=== PATIENT | male | born 1965 | race Caucasian/White ===

== ENCOUNTER 2017-02-03 09:56 | Day surgery (SDC) | payer BC ==
[~2017-02-03 09:56] MED LIST: Acetaminophen/HYDROcodone 325-5 MG Tab PO PRN; Lactated Ringers 1,000 ML IV SCH; Lidocaine 1% 20 ML MDV ONE; ceFAZolin 2 GM in Premix Bag 1 BAG IV SCH
[2017-02-03] MEDS ORDERED: Midazolam 1 MG/ML 2 ML SDV ONE (11:02)
[2017-02-03] MEDS ORDERED: Propofol 200 MG/20 ML SDV ONE (11:02)
[2017-02-03] MEDS ORDERED: fentaNYL 100 MCG/2 ML SDV ONE ×2 (11:02→11:51)
[2017-02-03] MEDS ORDERED: Ondansetron 4 MG/2 ML SDV ONE (11:03)
[2017-02-03] MEDS ORDERED: Dexamethasone 4 MG/ML 5 ML MDV ONE (11:03)
--- NOTE | 2017-02-03 11:05 | PCM.PREANE ---
Preanesthetic Assessment - Procedure Proposed Procedure: Right knee arthroscopy - Anesthesia/Transfusion/Family Hx Anesthesia History: Prior Anesthesia Without Reaction Family History of Anesthesia Reaction: No Transfusion History: No Prior Transfusion(s) Intubation History: Unknown - Review of Systems General: No Symptoms Pulmonary: Other (smoker) Cardiovascular: No Symptoms Gastrointestinal: No Symptoms, Other (GERD) Neurological: No Symptoms Other: Reports: Depression - Physical Assessment NPO Status Date: 02/02/17 NPO Status Time: 22:00 O2 Sat by Pulse Oximetry: 94 Respiratory Rate: 18 Vital Signs: Last Vital Signs Temp 99.1 F 02/03/17 10:30 Pulse 60 02/03/17 10:30 Resp 18 02/03/17 10:30 BP 104/68 02/03/17 10:30 Pulse Ox 94 L 02/03/17 10:30 Height: 5 ft 8 in Weight: 170 lb ASA Class: 2 Mental Status: Alert & Oriented x3 Airway Class: Mallampati = 1 Dentition: Reports: Normal Dentition, Bridge (permanent upper frontal teeth) Thyro-Mental Finger Breadths: 3 Mouth Opening Finger Breadths: 3 ROM/Head Extension: Full Lungs: Clear to Auscultation, Normal Respiratory Effort Cardiovascular: Regular Rate, Regular Rhythm, No Murmurs - Allergies Allergies/Adverse Reactions: Allergies Allergy/AdvReac Type Severity Reaction Status Date / Time No Known Allergies Allergy Verified 02/01/17 09:05 - Blood Blood Available: No Product(s) Available: None - Anesthesia Plan Pre-Op Medication Ordered: None - Acknowledgements Anesthesia Type Planned: General Anesthesia (LMA) Pt an Appropriate Candidate for the Planned Anesthesia: Yes Alternatives and Risks of Anesthesia Discussed w Pt/Guardian: Yes Pt/Guardian Understands and Agrees with Anesthesia Plan: Yes PreAnesthesia Questionnaire Gastrointestinal History: Reports: GERD Musculoskeletal History: Reports: Fracture Other Musculoskeletal History: hx fx ribs, fingers and back Psychiatric History: Reports: Other (See Below) Other Psychiatric History: on anti depressents in the past - Past Surgical History Head Surgeries/Procedures: Reports: None Musculoskeletal Surgical History: Reports: Hip Replacement, Other (See Below) Other Musculoskeletal Surgeries/Procedures:: total left hip replacement - SUBSTANCE USE Smoking Status *Q: Light Tobacco Smoker Tobacco Use Within Last Twelve Months: Cigarettes Recreational Drug Use History: No - HOME MEDS Home Medications: Home Meds . [No Known Home Meds] 02/01/17 [History] - CURRENT (IN HOUSE) MEDS Current Meds: Current Medications Hydrocodone Bitart/Acetaminophen ([place] 325-5 Mg) 1 - 2 tab PO Q4H PRN PRN Reason: Pain Cefazolin Sodium/Dextrose 2 gm (/ Premix) 50 mls @ 100 mls/hr IV ONCALL SHARON Lactated Ringer's (Ringers, Lactated) 1,000 mls @ 100 mls/hr IV ASDIRECTED SHARON Discontinued Medications Lidocaine HCl (Xylocaine 1%) Confirm Administered Dose 20 ml .ROUTE .STK-MED ONE Stop: 02/03/17 07:55
[2017-02-03] MEDS ORDERED: Ketorolac 30 MG/ML SDV ONE (11:50)
--- NOTE | 2017-02-03 12:06 | PCM.OPNOTE ---
- General Post-Op/Procedure Note Date of Surgery/Procedure: 02/03/17 Operative Procedure(s): R knee arthroscopy with PLM/PMM Post-Op Diagnosis: R knee med/lat meniscus tear. DJD R knee Anesthesia Technique: General LMA Primary Surgeon: Sonia Pedersen Fringing Machine Operator: Nick Wan in mLs: 5 Condition: Good Free Text/Narrative:: tt= Unable to dictate immediately due to phone power failure
[2017-02-03] MEDS ORDERED: fentaNYL 100 MCG/2 ML SDV IVPUSH PRN (12:12)
--- NOTE | 2017-02-03 14:21 | PCM.POSTAN ---
POST ANESTHESIA ASSESSMENT - MENTAL STATUS Mental Status: Alert, Oriented - RESPIRATORY Respiratory Status: Respiratory Rate WNL, Airway Patent, O2 Saturation Stable - CARDIOVASCULAR CV Status: Pulse Rate WNL, Blood Pressure Stable - GASTROINTESTINAL GI Status: No Symptoms - POST OP HYDRATION Hydration Status: Adequate & Stable
--- NOTE | 2017-02-03 14:21 | PCM48HPAN ---
Post Anesthesia Note - EVALUATION WITHIN 48HRS OF ANESTHETIC Vital Signs in Normal Range: Yes Patient Participated in Evaluation: Yes Respiratory Function Stable: Yes Airway Patent: Yes Cardiovascular Function Stable: Yes Hydration Status Stable: Yes Pain Control Satisfactory: Yes Nausea and Vomiting Control Satisfactory: Yes Mental Status Recovered: Yes
--- NOTE | 2017-02-04 13:32 | OR ---
SURGEON: Sonia Pedersen MD DATE OF PROCEDURE: 02/03/2017 PREOPERATIVE DIAGNOSIS: Right knee medial meniscus tear. POSTOPERATIVE DIAGNOSES: 1. Right knee medial meniscus tear. 2. Right knee lateral meniscus tear. 3. Degenerative joint disease, right knee. PROCEDURE: Right knee arthroscopy with partial, medial, and lateral meniscectomies. SURVEYOR HYDROGRAPHIC: Nick Wan PA-C. ANESTHESIA: General. ESTIMATED BLOOD LOSS: 5 mL. TOURNIQUET TIME: 13 minutes. COMPLICATIONS: None. DVT PROPHYLAXIS: Not indicated. IMPLANTS USED: None. BRIEF HISTORY: Quang is a 51-year-old male, who has had complaint of progressive right knee pain. He did respond initially to a cortisone injection, however, his pain did recur. An MRI did show a tear of the medial meniscus. Due to his lack of response to conservative treatment, I did recommend surgical intervention. The risks and goals of the procedure were discussed with the patient and were documented preoperatively. He agreed to proceed. DESCRIPTION OF PROCEDURE: The patient was properly identified and brought to the operating room. He was transferred from the OR cart and placed on the operating table in supine position. General anesthesia was administered. After adequate anesthesia was obtained, a well-padded tourniquet was applied to the right lower extremity. The right lower extremity was then prepped in standard fashion using ChloraPrep solution. It was then sterilely draped. A time-out was performed to ensure correct site and procedure. Preoperative antibiotics were given. The surgical site had been marked preoperatively. An Esmarch was used to exsanguinate the right lower extremity and the tourniquet was inflated to 250 mmHg. A lateral portal arthrotomy was established. Blunt trocar and cannula were introduced into the suprapatellar pouch. Camera, inflow, and outflow were assembled. No significant synovitis was noted. The patellofemoral joint was then visualized. He had extensive degenerative changes along the central portion of the trochlea. The patella appeared to track centrally. I then extended down the medial and lateral gutter. No loose bodies were identified. I then entered the medial compartment. A medial portal arthrotomy was established. A blunt probe was inserted. Degenerative tearing of the posterior horn of the medial meniscus was noted. The joint surfaces were inspected. 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 Using a combination of biters and shaver, the medial meniscus tear was resected back to a stable remnant. It was again probed and found to be stable. I then entered the notch. Both the ACL and PCL were visualized and probed and found to be intact. I then entered the lateral compartment. The meniscus was probed. He was found to have degenerative tearing along the central portion of the meniscus. This was resected with a combination of biters and shaver. The meniscus was again probed and found to be stable. He did have evidence of grade 3 to grade 4 chondromalacia along the lateral tibial plateau. The lateral femoral condyle showed grade 2 chondromalacia only. I then re-entered the patellofemoral joint. The central portion of the trochlea showed evidence of grade 4 chondromalacia, which measured approximately 15 x 10 mm. No loose fragments were noted. The instruments were then removed from the knee. The portal sites were closed with 3-0 nylon. Lidocaine 1% was injected along the portal tract. Xeroform gauze was placed over the wound and a bulky dressing was applied. The tourniquet was then deflated. He was awakened from his anesthetic and transferred back to the operating room cart. He was brought to recovery room in stable condition. All needle and sponge counts were correct. SANDY / CHEL /[id number]
== END 2017-02-03 13:45 | disposition home or self-care (01) ==
LOC: MW.SDS 09:56
PROVIDERS: ATTEND Orthopaedic Surgery
DX: M23.321 Other meniscus derangements, posterior horn of medial meniscus, right knee (principal); M23.361 Other meniscus derangements, other lateral meniscus, right knee; M94.261 Chondromalacia, right knee; M17.11 Unilateral primary osteoarthritis, right knee; F17.210 Nicotine dependence, cigarettes, uncomplicated; Z96.641 Presence of right artificial hip joint
CPT/HCPCS: 29880; J1100; J1885; J2250; J2405; J3010; 01400; 88304; J2704